=== PATIENT | female | born 2000 | race Hispanic/Latino ===

== ENCOUNTER → 2025-08-14 09:32 | Outpatient (CLI) | payer OTHER, SELFPAY | PROVIDERS: PCP Physician Assistant; Visit Provider Physician Assistant | DX: R21 Rash and other nonspecific skin eruption (principal); N89.8 Other specified noninflammatory disorders of vagina; R30.0 Dysuria | CPT/HCPCS: 87086; 87252; 87491; 87563; 87591 ==

== ENCOUNTER 2025-08-15 13:53 | Emergency (ER) | payer OTHER, SELFPAY ==
[2025-08-15 14:28] VITALS: BP 117/75; PULSE 93; RESP 17; TEMP 37.3; O2SAT 98
[2025-08-15 15:43] LABS: Color Urine UA ORANGE
[2025-08-15 15:44] LABS: Appearance Urine UA Slightly Cloudy
[2025-08-15 15:48] LABS: Culture Indicated Urine Specimen Cultured
[2025-08-15 16:33] LABS: Urine N gonorrhoeae NOT DETECTED
[2025-08-15 16:36] LABS: Urine Chlamydia NOT DETECTED
--- NOTE | 2025-08-15 17:49 | ED_ITS ---
HPI - Female Genitourinary General Chief complaint: Urogenital-Female Stated complaint: Vaginal Infection , Lower left side pain 2 days Time Seen by Provider: 08/15/25 15:15 Source: patient Mode of arrival: Family Vehicle History of Present Illness HPI Narrative: 25-year-old female presents to the ED with 2 days of vaginal and rectal lesions, burning with urination. Patient was seen at a walk-in clinic yesterday, was given a injection of ceftriaxone, prescribed doxycycline and valacyclovir. Patient is also taking azo for the dysuria. Related Data Previous Rx's ?Medication ?Instructions ?Recorded cefpodoxime 200 mg tablet 200 mg PO Q12H 7 days #14 ta bs 08/15/25 metronidazole 500 mg tablet 500 mg PO Q8H 7 days #21 t abs 08/15/25 Allergies Allergy/AdvReac Type Severity Reaction Status Date / Time No Known Drug Allergies Allergy Verified 08/15/25 14:28 Review of Systems Constitutional Constitutional: Denies chills, Denies fatigue, Denies fever(s), Denies frequent falls, Denies lethargy and Denies weakness Eyes Eyes: Denies change in vision, Denies eye discharge, Denies irritation and Denies loss of vision ENT Ears, Nose, Mouth, and Throat: Denies change in voice, Denies dizziness, Denies neck pain, Denies sore throat and Denies throat swelling Cardiovascular Cardiovascular: Denies chest pain, Denies irregular heart rhythm, Denies lightheadedness, Denies palpitations, Denies dyspnea, Denies dyspnea on exertion and Denies orthopnea Respiratory Respiratory: Denies cough, Denies dyspnea, Denies dyspnea on exertion and Denies wheezing Gastrointestinal Gastrointestinal: Denies abdominal pain, Denies change in bowel habits, Denies diarrhea, Denies nausea and Denies vomiting Genitourinary Genitourinary: Reports dysuria and Reports genital lesions Musculoskeletal Musculoskeletal: Denies neck pain and Denies numbness Integumentary/Breasts Skin/Breast: Denies pruritus, Denies erythema, Denies rash and Denies wounds Neurologic Neurologic: Denies behavioral changes, Denies confusion, Denies dizziness, Denies frequent falls, Denies loss of vision, Denies numbness and Denies weakness Psychiatric Psychiatric: Denies anxiety, Denies behavioral changes, Denies confusion, Denies depression, Denies homicidal ideation and Denies suicidal ideation Endocrine Endocrine: Denies fatigue, Denies flushing and Denies palpitations Hematologic/Lymphatic Hematologic/Lymphatic: Denies easy bruising Allergic/Immunologic Allergic/Immunologic: Denies urticaria, Denies throat swelling and Denies wheezing Patient History tobacco type: cigarettes Exam Narrative Exam Narrative: Const General:?cooperative, healthy appearing and comfortable [facility] Head:?normal to inspection Ears:?hearing grossly normal bilaterally Nose:?external nose normal Face and sinus:?normal facial exam and sinuses nontender Mouth:?oral mucosae normal Throat:?posterior oropharynx normal Eyes General:?appearance normal, both eyes and all related structures Neck Neck:?normal visual inspection and no lymphadenopathy noted Resp Effort & Inspection:?normal respiratory effort Auscultation:?clear to auscultation bilaterally Cardio Rate:?regular rate Rhythm:?regular rhythm Genital lesions noted around the vagina and anus. No abnormal discharge noted. Internal exam deferred. Neuro General:?patient alert, patient awake and patient oriented x3 Initial Vital Signs Initial Vital Signs: Vital Signs Temperature 99.1 F 08/15/25 14:28 Pulse Rate 93 H 08/15/25 14:28 Respiratory Rate 17 08/15/25 14:28 Blood Pressure 117/75 08/15/25 14:28 Pulse Oximetry 98 08/15/25 14:28 Oxygen Delivery Method Room Air 08/15/25 14:28 Course Orders Ordered: ED Orders 08/15/25 14:45 Chlamydia Gonorrhea PCR -URINE Stat 08/15/25 15:32 Test Urine Stat Urinalysis and Microscopic Stat Urine Culture Stat 08/15/25 17:12 Wet Prep Tric BV Analia Stat Vital Signs Vital signs: Vital Signs - 8 hr 08/15/25 14:28 Temperature 99.1 F Pulse Rate 93 H Respiratory Rate 17 Blood Pressure 117/75 Pulse Oximetry 98 Oxygen Delivery Method Room Air MDM - Female Genitourinary Lab Data Labs: Lab Results 08/15/25 08/15/25 Range/Units 14:45 15:32 Urine Color Celeste Urine Appearance Slightly cloudy Urine pH TNP Ur Specific [place] TNP Urine Protein TNP Urine Glucose (UA) TNP Urine Ketones TNP Urine Occult Blood TNP Urine Nitrate TNP Urine Bilirubin TNP Urine Urobilinogen TNP Ur Leukocyte Esterase TNP Urine RBC 0-1/hpf (0-5/HPF) Urine WBC 30-100/hpf H (0-5/HPF) Ur Squamous Epith Cells 1-5 /hpf (0-5/HPF) Urine Bacteria Many (>30) H (None) Ur Culture Indicated? Specimen cultured Vol Urine Centrifuged 10ml (spun) Urine Test Negative (Negative) Ur Chlamydia DNA (PCR) Not detected N gonorrhoeae DNA (PCR) Not detected MDM Narrative Medical decision making narrative: 25-year-old female presents to the ED with 2 days of vaginal and rectal lesions, burning with urination. Genital lesions concerning for herpes versus GC versus other. UA was positive for a UTI. Urine GC was negative. Wet prep showed WBCs, could be due to the UTI or other bacterial vaginal infections. Patient prescribed Flagyl, cefpodoxime. Recommend continuing all medications. Recommend follow-up with PCP as soon as possible. ED return precautions discussed with patient. Patient verbalized understanding. Medical records reviewed: Yes Discharge Plan Departure Patient Disposition: Home Clinical Impression: Urinary tract infection Qualifiers: Urinary tract infection type: site unspecified Hematuria presence: without hematuria Qualified Code(s): N39.0 - Urinary tract infection, site not specified Instructions: DI for Urinary Tract Infection (UTI) Activity Restrictions/Additional Instructions: You were evaluated in the emergency department today for a vaginal rash and burning with urination. Your urine was positive for a urinary tract infection. You are being prescribed antibiotics for it. Please take them as prescribed. Please continue the other medications that you are taking as well. Follow-up with your primary care doctor as soon as possible. Return to the emergency room if you have worsening symptoms. Prescriptions: New metronidazole 500 mg tablet 500 mg PO Q8H 7 Days Qty: 21 0RF cefpodoxime 200 mg tablet 200 mg PO Q12H 7 Days Qty: 14 0RF Rx Instructions: must administer with a meal/food Stand Alone Forms: Patient Portal/API
[2025-08-15 17:56] VITALS: BP 115/71; PULSE 87; RESP 17; O2SAT 97
== END 2025-08-15 17:58 | disposition home or self-care (01) ==
PROVIDERS: Emergency Provider Student in an Organized Health Care Education/Training Program
DX: N39.0 Urinary tract infection, site not specified (principal); N89.8 Other specified noninflammatory disorders of vagina
CPT/HCPCS: 81001; 81025; 87086; 87210; 87491; 87591; 99281; 99282

== ENCOUNTER → 2025-08-30 09:47 | Outpatient (CLI) | payer OTHER, SELFPAY ==
[2025-08-30 18:56] LABS: Add Manual Diff / Slide Review NO; Hematocrit 40.5 % (36-46); Hemoglobin 14.1 g/dL (12.0-16.0); Lymphocytes Absolute Auto 2000 /uL (1100-4500); Mean Corpuscular HGB Conc 34.8 % (30-36); Mean Corpuscular Hemoglobin 30.7 PG (26-34); Mean Corpuscular Volume 88.1 fL (80-100); Platelet Count 420 X10^3/uL (150-400)
[2025-08-30 19:02] LABS: Hemoglobin A1C% w Est Avg Glu 5.2 % (4.0-6.0)
[2025-08-30 19:05] LABS: Alanine Aminotransferase 30 IU/L (<35); Albumin 4.8 g/dL (3.5-5.0); Albumin Globulin Ratio 1.7 (1.0-2.8); Alkaline Phosphatase 50 U/L (38-126); Blood Urea Nitrogen 14 mg/dL (7-17); Calcium 9.5 mg/dL (8.4-10.2); Carbon Dioxide 26 mmol/L (22-32); Chloride 105 mmol/L (98-107); Estimated Glomerular Filt Rate > 60 mL/min (>60); Globulin 2.8 g/dL (1.7-4.1); Glucose 95 mg/dL (70-99); HEMOLYSIS < 15 (0-50); Potassium 4.4 mmol/L (3.4-5.1); Sodium 139 mmol/L (137-145); Total Protein 7.6 g/dL (6.3-8.2)
[2025-08-30 19:29] LABS: TSH w/ Reflex to FT4 1.41 uIU/mL (0.47-4.68)
[2025-08-31 16:06] LABS: HIV 1 & 2 Ab/Ag 4th Gen Combo NEGATIVE (NEGATIVE)
== END ==
PROVIDERS: PCP Physician Assistant; Visit Provider Physician Assistant Medical
DX: N89.8 Other specified noninflammatory disorders of vagina (principal); R21 Rash and other nonspecific skin eruption; B37.49 Other urogenital candidiasis
CPT/HCPCS: 80053; 83036; 84443; 85025; 85651; 86140; 87086; 87389; 87529